=== PATIENT | female | born 1950 | race Caucasian/White ===

== ENCOUNTER 2016-07-28 16:04 | Observation (INO) | payer MEDICARE ==
[2016-07-28] VITALS (7 sets, daily range): BP systolic 126–150; BP diastolic 78–90; PULSE 80–96; RESP 16–20; O2SAT 95–97
[~2016-07-28] VITALS: Ht 175.3 cm; Wt 83.5 kg
--- NOTE | 2016-07-28 16:16 | ED.REPORT ---
HPI-General Illness Date of Service Jul 28, 2016 ED Provider: Abimael Rahman MD 66 year old female with a long history of atrial fibrillation and cardiac ablation presents to the ER via EMS with chest pressure and shortness of breath onset three days ago upon awakening. Symptoms are consistent with prior episodes of atrial fibrillation, though much longer than is typical for her. Her symptoms were exacerbated by minimal exertion yesterday when she went to do some work in the [place] her home. At that time she noticed increased HR and BP. Symptoms continued to persist through today, and upon returning home around 13:00 this afternoon she took twice her normal dose of Diltiazem and called her primary care provider who referred her to the ER. In the past she has experienced a lot of adverse side effects with a litany of cardiac medications. Nursing Notes Stated Complaint: CARDIAC ISSUE Nursing Notes Reviewed: Yes Allergies: Coded Allergies: Opioids - Morphine Analogues (Verified Adverse Reaction, Severe, itching, 07/28/16) all opiates General Time Seen by MD: 16:16 Chief Complaint Chest pain Hx Obtained From: Patient Arrived By: Ambulance Sudden in Onset?: Yes Onset Occurred: 3 days ago Symptom Duration: Since onset Location: : Chest Quality: Pressure Severity: Current: Moderate Severity: Maximum: Moderate Pertinent Negative: Pt denies other symptoms Similar Sx Previous: Yes Past Medical History Past Medical History Atrial fibrillation Smoking History Current Every Day Smoker Social History Alcohol Use: 3-5 per day Other Social History: Good social support, Ambulatory Status Independent Review of Systems Full Review of Systems Constitutional: Denies: Chills, Fever Respiratory: Reports: Shortness of breath Cardiovascular: Reports: Chest pain GI: Denies: Abdominal pain, Diarrhea, Nausea, Vomiting Musculoskeletal: Denies: Back pain, Neck pain, Thoracic pain Skin: Denies Diaphoresis Complete sys rev & neg: except as marked. Physical Exam Vital Signs Vital Signs Date Time Temp Pulse Resp B/P Pulse Ox O2 Delivery O2 Flow Rate FiO2 07/28/16 17:35 84 18 150/85 07/28/16 16:45 96 18 126/87 07/28/16 16:24 37.6 88 16 141/84 95 Room Air Initial VS: Reviewed Head / Eyes: Atraumatic, Normocephalic Neck: Supple, Non-tender, Full range of motion Abdomen / GI: Soft, Non-tender, No guarding, No rebound, No distention Extremities: Vascular intact, Neuro intact, No swelling, No tenderness Skin: Warm, Dry, No cyanosis Neurologic: Alert, Oriented, Nonfocal General/Constitutional: Awake, Alert, Well developed, Well nourished Respiratory / Chest: Breath sounds NL, No respiratory distress, No rales, No rhonchi, No wheezing Cardiovascular: Heart rate NL, No gallop, No murmurs, No rubs Heart Rate / Rhythm: Positive: Irregular rhythm Interpretation & Diagnostics Lab Results Interpretation Result Diagram: 07/28/16 1628 07/28/16 1628 Test 07/28/16 16:28 07/28/16 18:00 White Blood Count 7.3th/mm3 (3.8-10.1) Red Blood Count 4.49mil/mm3 (3.90-5.20) Hemoglobin 14.2g/dL (12.0-15.6) Hematocrit 42.0% (35.0-46.0) Mean Corpuscular Volume 93.5fL (81-100) Mean Corpuscular Hemoglobin 31.6pg (27.0-35.0) Mean Corpuscular Hemoglobin Concent 33.8% (32.0-37.0) Red Cell Distribution Width 12.1% (12.3-15.4) Platelet Count 243bil/L (150-400) Neutrophils (%) (Auto) 54.1% (40-74) Lymphocytes (%) (Auto) 30.4% (14-46) Monocytes (%) (Auto) 11.7% (4-12) Eosinophils (%) (Auto) 3.0% (0-5) Basophils (%) (Auto) 0.5% (0-3) Sodium Level 139mEq/L (134-144) Potassium Level 4.2mEq/L (3.5-5.2) Chloride Level 100mEq/L (97-108) Carbon Dioxide Level 23mmol/L (18-29) Blood Urea Nitrogen 17mg/dL (8-27) Creatinine 0.88mg/dL (0.57-1.00) Estimat Glomerular Filtration Rate 92mL/min (>59) Glucose Level 102mg/dL (60-99) Calcium Level 9.4mg/dL (8.5-10.1) Magnesium Level 2.0mg/dL (1.6-2.6) Total Bilirubin 0.3mg/dL (0.0-1.2) Aspartate Amino Transf (AST/SGOT) 32U/L (0-50) Alanine Aminotransferase (ALT/SGPT) 20U/L (0-32) Alkaline Phosphatase 81U/L (25-165) Troponin T < 0.010ug/L (0.0-0.011) Total Protein 7.7g/dL (6.4-8.4) Albumin 4.3g/dL (3.4-5.0) Hold [place] Top Tube Received (Received) ECG Interpretation ECG Interpretation: Atrial flutter 2:1 conduction pattern Left axis deviation Inferior Q waves No ST segment elevation No T wave abnormalities No prior ECG available for comparison Time: 17:25 Interpreted by: ED physician X-Ray Chest Interpretation Chest Xray Interpretation: IMPRESSION: No acute cardiopulmonary abnormality Dictated by: Gregorio Cook M.D. on 07/28/2016 at 17:00 Approved by: Gregorio Cook M.D. on 07/28/2016 at 17:00 View: Portable, 1 view Interpretation / Wet Read by: Interpret - Radiologist Re-Eval/Medical Decision Med Decision/Clinical Course 66 year old female with a long history of atrial fibrillation and cardiac ablation presents to the ER via EMS with chest pressure and shortness of breath onset three days ago upon awakening. Symptoms are consistent with prior episodes of atrial fibrillation and rapid ventricular response. Prior to arrival the patient is been started on diltiazem bolus and infusion by flight nurse. Laboratory studies were notable as below: CBC unremarkable Chemistry unremarkable Troponin negative EKG was obtained and interpreted by myself as documented above. CXR: Obtained, reviewed and interpreted by myself shows no evidence of acute infiltrates, effusions or pneumothorax. Cardiac and mediastinal silhouette normal. No bony or soft tissue abnormalities. Pt and was maintained on diltiazem infusion with good rate control. He remained in atrial fibrillation/flutter. Patient had no ongoing symptoms of ischemia such as altered mental status or lightheadedness or chest pain. Initial screening troponin was negative and EKG was not acutely ischemic in appearance. Patient was discussed with admitting hospitalist and accepted for further management. Patient has a history of drinking 1 bottle of wine a day and was therefore placed on CIWA protocol. Source of Hx: Old records Time of Eval: 17:42 Re-Evaluation/Progress Note: Discussed plan to transfer. Patient is amenable to the plan. Discharge & Departure Primary Impression: Atrial flutter Atrial flutter type: unspecified Qualified Code: I48.92 - Unspecified atrial flutter Additional Impressions: Atrial fibrillation with rapid ventricular response Headache Headache type: unspecified Headache chronicity pattern: unspecified pattern Intractability: not intractable Qualified Code: R51 - Headache Lightheadedness Chest discomfort Alcoholism Discharge Condition All VS Reviewed: Yes Condition: Stable Referrals: NOPCP (PCP) Crit Care Except Billable Proc Time Spent: 105-134 minutes Services Performed: Patient management by me, Time spent at bedside, Reviewing test results, Reviewing imaging, Discussing patient care, Documentation in record, Time with fam/surrogate Scribe Attestation Portions of this note were transcribed by Vivek Ornelas. I, Dr. Rahman, personally performed the history, physical exam and medical decision-making; I reviewed and confirmed the accuracy of the information in the transcribed note. Signed by: Emely Pearl, 07/28/2016 and 18:11 Abimael Rahman MD Jul 28, 2016 16:16 VIVEK ORNELAS Jul 28, 2016 17:26
[2016-07-28 16:48] LABS: BASOPHILS % (AUTO) 0.5 % (0-3); MONOCYTES % (AUTO) 11.7 % (4-12); Mean Corpuscular Hemoglobin 31.6 pg (27.0-35.0); Mean Corpuscular Volume 93.5 fL (81-100); NEUTROPHILS % (AUTO) 54.1 % (40-74); Platelet Count 243 bil/L (150-400)
--- NOTE | 2016-07-28 17:02 | DRSVH ---
PROCEDURE: X-RAY CHEST ONE VIEW, PORTABLE ([id number]) INDICATIONS: shortness of breath TECHNIQUE: One view of the chest was acquired. COMPARISON: None. FINDINGS: Surgical changes and devices: 11/13/2014 Lungs and pleura: No pleural effusions or pneumothorax. Lungs are clear. Mediastinum: Mediastinal contours appear normal. Heart size is normal. Bones and chest wall: No suspicious bony lesions. Overlying soft tissues appear unremarkable. IMPRESSION: No acute cardiopulmonary abnormality Dictated by: Gregorio Cook M.D. on 07/28/2016 at 17:00 Approved by: Gregorio Cook M.D. on 07/28/2016 at 17:00
[2016-07-28 17:12] LABS: TROPONIN T < 0.010 ug/L (0.0-0.011)
[2016-07-28] MEDS ORDERED: Ondansetron 2 mg/mL 2 mL Inj IVPUSH PRN (18:50)
[2016-07-28] MEDS ORDERED: Alum-Mag Hydrox-Simeth 30 mL Suspension PO PRN (18:50)
[2016-07-28 21:32] LABS: APPEARANCE,URINE HAZY (CLEAR,HAZY); COLOR,URINE YELLOW (YELLOW); PH,URINE 6.5 (5.0-8.0)
[2016-07-28 21:33] LABS: OCCULT BLOOD,URINE NEGATIVE (NEGATIVE); UROBILINOGEN,URINE NORMAL (NORMAL)
[2016-07-28] MEDS ORDERED: Polyethylene Glycol (PEG) 17 Gm Powder PO PRN (22:35)
--- NOTE | 2016-07-28 22:52 | PCM.HPMED ---
Subjective Date of Service Jul 28, 2016 Primary Provider: Admitting Physician: Darren Merino MD Primary Care Physician: Nopsuzy Attending Physician: Darren Merino MD Chief Complaint: chest palpitations History of Present Illness: Patient is a 66 year old female with a long standing history of atrial fibrillation. Patient occasionally goes into atrial fibrillation with rvr. Due to her location of her house she is unable to come to the hospital, so she often sees if it abates or proceeds to take flecanide if the symptoms continue. Patient has been noticing that she has been having increasingly frequent bouts of atrial fibrillation with rvr. However these go away spontaneously by themselves. Patient in the past year had to take flecanide twice when her symptoms did not improve. Patient after taking flecanide usually is asymptomatic. Patient in this instance was seen to again go into atrial fibrillation with presumed rvr. Patient continued on for two days with it however the symptoms did not subside. Patient was hesitant to take the flecanide given the overly sedative affects that it causes in her. Patient then called her doctor who advised her to call ems. Patient was seen by ems, and due to the patients location they called a doctor, and started a diltiazem drip. Patient on arriving to the ER was seen to be rate controlled. Patient has no other complaints except for fatigue. Patient has had no episodes of chest pain or shortness of breath stemming from this. Patient is currently asymptomatic and will be monitored. Review of Systems: Full Review of Systems Constitutional: Denies: Chills, Fever Respiratory: Reports: Shortness of breath Cardiovascular: Reports: Chest pain GI: Denies: Abdominal pain, Diarrhea, Nausea, Vomiting Musculoskeletal: Denies: Back pain, Neck pain, Thoracic pain Skin: Denies Diaphoresis Complete sys rev & neg: except as marked. Allergies Coded Allergies: Opioids - Morphine Analogues (Verified Adverse Reaction, Severe, itching, 07/28/16) all opiates Home Medications diltiazem aspirin PMH atrial fibrillation Surgical History none Family History non-contributory Social History Hx Alcohol Use: Yes (daily, 1 bottle of wine) Hx Substance Use: No Smoking Status: Current Every Day Smoker Exam Vital Signs Vital Sign - Last Date Time Temp Pulse Resp B/P Pulse Ox O2 Delivery O2 Flow Rate FiO2 07/28/16 21:24 82 07/28/16 21:16 36.4 20 141/90 96 Room Air Exam General/Constitutional: Awake, Alert, Well developed, Well nourished Head / Eyes: Atraumatic, Normocephalic Neck: Supple, Non-tender, Full range of motion Respiratory / Chest: Breath sounds NL, No respiratory distress, No rales, No rhonchi, No wheezing Cardiovascular: Heart rate NL, No gallop, No murmurs, No rubs Heart Rate / Rhythm: Positive: Irregular rhythm Abdomen / GI: Soft, Non-tender, No guarding, No rebound, No distention Extremities: Vascular intact, Neuro intact, No swelling, No tenderness Skin: Warm, Dry, No cyanosis Neurologic: Alert, Oriented, Nonfocal Lab and Diagnostics Result Diagram: 07/28/16 1628 07/28/16 1628 X-Rays, CTs and MRIs X-Ray Chest Interpretation Chest Xray Interpretation: IMPRESSION: No acute cardiopulmonary abnormality 12-lead ECG ECG Interpretation: Atrial flutter @ 86 bpm 2:1 conduction pattern Left axis deviation Inferior Q waves No ST segment elevation No T wave abnormalities No prior ECG available for comparison Assessment & Plan Patient is a 66 year old female with a pmh of atrial fibrillation on no anticoagulation was found to be in afib with rvr at home, transported to the hospital on diltiazem drip Atrial fibrillation with rvr - resolved - currently patient is rate controlled and off of diltiazem drip - will start po diltiazem - will c/w aspirin - will admit to telemetry - pt wishes to be on anticoagulation given better monitoring capabilities and insurance coverage - cardiology consult in the am if warranted - will order echo given new onset exercise intolerance Alcohol - Pt claims to drink a bottle of wine a night - Pt claims to have drank every night in the past 2 weeks - pt claims to have never had dts before - will monitor for withdrawal symptoms Tobacco abuse - pt smokes everyday, half a pack - advised to quit - pt will make attempts DVT ppx via lovenox GI ppx not warranted Darren Merino MD Jul 28, 2016 22:52
[2016-07-28] MEDS ORDERED: Thiamine Inj 100 MG, Folic Acid Inj 1 MG, Magnesium Sulfate 50% Inj 2 GM, Multivitamins... IV ONE ×5 (22:55)
[2016-07-28] MEDS ORDERED: DILT30TA PO (23:11)
--- NOTE | 2016-07-29 00:37 | NUR ---
Admit note: Pt admitted from ER, able to ambulate to bed; steady on feet. Denies chest pain, shortness of breath. Tele a flutter 70s. CIWA score zero. States drinking one bottle of wine daily, denies ever having DT's. Alert and oriented x3. Oriented to the room and call light.
--- NOTE | 2016-07-29 00:41 | NUR ---
Med rec: Pt is from [facility]. [place] [facility] [place] Only scheduled medication is Diltiazem 30 mg PO daily. Pt did state that she take Flecanide as needed for bouts of a fib; unknown dose, not scheduled.
[2016-07-29 05:56] VITALS: BP 118/68; PULSE 60; RESP 16; O2SAT 98
[2016-07-29 06:13] LABS: BASOPHILS % (AUTO) 0.7 % (0-3); EOSINOPHILS % (AUTO) 8.9 % (0-5); MONOCYTES % (AUTO) 12.7 % (4-12); Mean Corpuscular Hemoglobin 32.1 pg (27.0-35.0); Mean Corpuscular Volume 93.7 fL (81-100); NEUTROPHILS % (AUTO) 42.4 % (40-74); Platelet Count 225 bil/L (150-400)
[2016-07-29 06:29] LABS: Magnesium 2.2 mg/dL (1.6-2.6)
[2016-07-29 09:54] VITALS: BP 144/80; PULSE 71; RESP 18; O2SAT 98
[2016-07-29 12:51] VITALS: BP 171/92; PULSE 69; RESP 17; O2SAT 99
--- NOTE | 2016-07-29 15:04 | DRSVH ---
[facility] [address] [place] [address] Echocardiogram Report Name: TRACEY OTT JStudy Date: 07/29/2016 Height: 69 in Hospital Exam Location: [facility] Weight: 184 lb Gender: Female BSA: 2.0 m2 : 1950 Age: 66 yrs BP: 118/68 mmHg Reason For Study: Atrial fibrillation History: smoker Ordering Physician: Performed By: Chely Elise [facility] Interpretation Summary The left ventricle is normal in size, wall thickness, and systolic function without any focal wall motion abnormalities. The ejection fraction is estimated to be 55-60%. The right ventricle grossly appears normal in size with probable normal systolic function. The right ventricular systolic pressure is estimated at 29 mmHg assuming a right atrial pressure of 3 mm Hg. The left atrium is mildly dilated. The right atrium is mildly dilated. There is no significant valvular heart disease. The aortic root is normal size. Procedure: A two-dimensional transthoracic echocardiogram with color flow and Doppler was performed. The study quality was technically adequate. There is no prior echocardiogram noted for this patient. The patient was in normal sinus rhythm during the exam. Left Ventricle: The left ventricle is normal in size, wall thickness, and systolic function without any focal wall motion abnormalities. The ejection fraction is estimated to be 55-60%. Septal motion is consistent with conduction abnormality. Assessment of diastolic parameters indicates normal left ventricular diastolic function and normal filling pressures. Right Ventricle: The right ventricle grossly appears normal in size with probable normal systolic function. Atria: The left atrium is mildly dilated. The right atrium is mildly dilated. The interatrial septum is intact with no evidence for an atrial septal defect. There is no Doppler evidence for an interatrial shunt. Mitral Valve: The mitral valve leaflets appear borderline thickened, but open well. There is trace mitral regurgitation. Aortic Valve: The aortic valve is not well visualized. The aortic valve opens well. No aortic regurgitation is present. Tricuspid Valve: The tricuspid valve leaflets are thin and pliable. There is a trace or physiologic amount of tricuspid regurgitation. The right ventricular systolic pressure is estimated at 29 mmHg assuming a right atrial pressure of 3 mm Hg. Pulmonic Valve: The pulmonic valve is not well visualized. There is no significant valvular heart disease. Great Vessels: The aortic root is normal size. The ascending aorta is normal in size. The aortic arch could not be visualized. The IVC is of normal diameter and collapses greater than 50% with a sniff. This suggests a low right atrial pressure of 3 mm Hg. Pericardium/ Pleura There is no pericardial effusion. MMode/2D Measurements & Calculations LVIDd: 5.2 cm LA dimension: 4.0 cm RA long axis LVOT diam LVIDs: 3.3 cm FS: 36.6 % LA A4 area: 28.7 cm RA area Ao root diam EPSS: 0.60 cm LA length (vol): 6.6 cm IVSd: 0.84 cm IVC diam: 1.3 cm : 22.0 cm asc Aorta LVPWd: 0.84 cm RA vol: 67.4 mlDiam: 3.1 cm RA : 33.8 mm2 LV fish. diameter/BSA LV sys. diameter/BSA RVD1 (basal) (cm/m^2): 2.6 (cm/m^2): 1.7 Doppler Measurements & Calculations Ao V2 max MV E max dax MV E/A: 1.0 TR max dax : 162.4 cm/sec : 73.5 cm/sec Med Peak E' Dax : 253.8 cm/sec Ao max PG MV A max dax TR max PG : 10.6 mmHg : 73.5 cm/sec E/E' med: 11.1 : 25.8 mmHg Ao mean PG MV P1/2t: 56.7 msec Pulm A Revs Dur PA V2 max : 79.7 cm/sec LVOT Max Dax MV A dur: 0.10 sec PA mean PG : 92.6 cm/sec VANE(I,D): 2.5 cm PA Accel Time sev ratio : 0.16 sec MV dec time MV P1/2t max dax Ao V2 mean LV V1 max PG : 0.19 sec : 111.4 cm/sec Ao V2 VTI: 31.5 cm LV V1 VTI MVA(P1/2t): 3.9 cm2 : 19.0 cm VANE(V,D): 2.4 cm2 PA V2 mean VANE indexed to BSA Pulm A Revs Dur - MV A : 64.0 cm/sec (cm^2/m^2): 1.2 Dur: 0.01 msec Reading Physician:ARJUN
--- NOTE | 2016-07-29 15:50 | NUR ---
Social Work: Initial Assessment / Chemical Dependency Assessment attempted Data: Pt is a 66 y/o female admitted for A-fib with RVR. Pt's PCP is not listed, pt's insurance is listed as [employer]. Readmit score not listed. Pt lives in a single story home on [address], pt is , lives in [place]. Pt drives, uses no DME, has no history of HH or SNF, no LTC or VA benefits, and is not a caregiver for anyone. Pt states that her is her DPOA, but that they do not have the paperwork to give to hospital. [employer] requested a copy when available. Pt states that she has been up and independent in the room. Pt states that she believes that she has Medicare with [facility] for insurance and gave [employer] their insurance cards to copy. [employer] copied cards, in P[employer] folder currently. PACKER OPERATOR [employer] called UR specialist and requested she look into pt's insurance information, no answer, [employer] left a message. No d/c planning needs identified at this time. P[employer] will continue to follow if needs arise. [employer] asked pt about alcohol use, pt reports drinking a bottle of wine each night and that it isn't a problem for them. [employer] asked if there are any negative results of this drinking and if pt sees this as a problem, they state it is not a problem. [employer] offered drinking resources, pt declined. Pt states they don't want to talk about drinking any further with [employer]. Assessment: Pt who is independent at baseline. Plan: Pt will d/c home via POV with spouse when medically stable. P[employer] will provide priority boarding pass for ferrVidient ride to [facility]. [employer] will look into medication coverage with pt's insurance information once verified. [employer] will continue to follow if needs arise. SONIA Burgos Addendum: 07/29/16 at 1606 by ROSI BIRMINGHAM SS Amended: Links added.
[2016-07-29 16:43] VITALS: BP 135/75; PULSE 71; RESP 18; O2SAT 95
[2016-07-29 16:51] VITALS: PULSE 70
--- NOTE | 2016-07-29 17:19 | PCM.PNMED ---
Subjective Date of Service Jul 29, [address] that she goes in and out of atrial fibrillation often and that she felt her heart racing very fast for almost 2 days straight before calling for EMS. She states that she had flecanide which she takes PRN for palpitations or lightheadedness. She took 2 doses of flecanide at home and waited for almost 12 hours, but it did not resolve and that is why she is here. She converted to NSR this morning with a heart rate in the 70s for much of the day. Exam Vital Signs Vital Sign - Last Date Time Temp Pulse Resp B/P Pulse Ox O2 Delivery O2 Flow Rate FiO2 07/29/16 12:51 37.0 69 17 171/92 99 Room Air Intake and Output 07/28/16 07/28/16 07/29/16 Cumulative From/Thru 15:00 23:00 07:00 07/28/16 16:24 - 07/29/16 05:57 Intake Total 837 ml 837 ml Output Total 400 ml 400 ml 800 ml Balance -400 ml 437 ml 37 ml Intake Oral 500 ml 500 ml IV Total 337 ml 337 ml Output Urine Total 400 ml 400 ml 800 ml # Voids 1 1 Exam General: Sitting up in bed, comfortable appearing upon my entering the room. Appears older than her stated age. No acute distress. Awake, alert and oriented. HEENT: Sclera anicteric. Mucus membranes moist Cardiac: RRR without murmur, rub, or gallop. No JVD Lungs: Moderate inspiratory effort without wheezes, rales, or rhonchi.No accessory muscle use. Abdomen: Normoactive bowel tones. Soft, nondistended and nontender. Extremities: No clubbing, cyanosis, or edema. Normal muscle tone and bulk. There are several bruises <2cm in diameter present on all 4 extremities, ranging from yellow to dark purple. Neuro: Normal speech. Cranial nerves grossly normal. Moves all 4 extremities with ease. Lab and Diagnostics Result Diagram: 07/29/1652307/29/16523 X-Rays, CTs and MRIs X-Ray Chest Interpretation Chest Xray Interpretation: IMPRESSION: No acute cardiopulmonary abnormality 12-lead ECG ECG Interpretation: Atrial flutter @ 86 bpm 2:1 conduction pattern Left axis deviation Inferior Q waves No ST segment elevation No T wave abnormalities No prior ECG available for comparison Assessment & Plan Ave is a 66 year old female with a long history of intermittent atrial fibrillation who was found to be in atrial fibrillation with rapid ventricular rate at home, transported here on a diltiazem drip. Atrial fibrillation with rapid ventricular rate, resolved - Currently in normal sinus rhythm - Now on oral diltiazem, may benefit from increased dosing from her usual home dosing - Continue aspirin - Continue telemetry - She has a hx of gastrointestinal hemorrhage with supratherapeutic warfarin in the past. - [id number] score of 2 indicating moderate-high risk of stoke, this was discussed with the patient who verbally expressed an interest in a new anticoagulant option. - HASBLED score of 3 indicates a high risk of major bleeding with anticoagulation this was also discussed with the patient, she is not entirely sure if she wants to start anticoagulation - Echocardiogram Alcohol use, chronic and present on admission - Drinks 1 bottle of wine per day - Denies any hx of withdrawal -Monitor for potential withdrawal symptoms, has been okay thus far Tobacco abuse - Nicotine patch daily - Encourage tobacco cessation Disposition: Anticipate discharge tomorrow if she remains in NSR. VTE Prophylaxis: Sub-Q Enoxaparin Resuscitation Status: CPR: Attempt Resuscitation Time spent 30 minutes Attending Statement I have seen and evaluated patient at bedside, in addition to directly supervising care provided by resident physician. I agree with above documentation. Salome Aldridge DO Jul 29, 2016 16:35 Tay Bray DO Jul 30, 2016 07:47
--- NOTE | 2016-07-29 19:18 | NUR ---
Aflutter Patient in Aflutter this AM. Spontaneously converted to sinus rhythm at 0745. Maintained sinus rhythm throughout shift.
[2016-07-29 21:11] VITALS: BP 152/87; PULSE 78; RESP 16; O2SAT 99
[2016-07-30 00:21] VITALS: BP 163/92; PULSE 75; RESP 18; O2SAT 97
--- NOTE | 2016-07-30 04:25 | NUR ---
CIWA/sleep Patients CIWA scores low 1-3 this shift. no s/s of withdrawal at this time. Patient eager to get home. vitals stable. Patient reports unable to sleep refused sleeping meds states "allergy to hospital" patient given snacks per request. Will continue monitor.
[2016-07-30 05:30] VITALS: BP 141/67; PULSE 67; RESP 16; O2SAT 96
[2016-07-30 05:42] LABS: BASOPHILS % (AUTO) 0.7 % (0-3); EOSINOPHILS % (AUTO) 8.2 % (0-5); MONOCYTES % (AUTO) 12.3 % (4-12); Mean Corpuscular Hemoglobin 31.3 pg (27.0-35.0); Mean Corpuscular Volume 93.8 fL (81-100); NEUTROPHILS % (AUTO) 43.1 % (40-74); Platelet Count 216 bil/L (150-400)
[2016-07-30 07:19] VITALS: PULSE 75
--- NOTE | 2016-07-30 08:15 | PCM.DIMED ---
Salome Aldridge DO 07/30/16 0743: Discharge Instructions Date of Service Jul 30, 2016 Dates of Hospitalization Jul 28, 2016 at 20:18 Discharge Diagnosis Discharge Diagnosis Atrial fibrillation with rapid ventricular rate, resolved Alcohol use, chronic and present on admission - No withdrawal symptoms observed Tobacco use Medication Instructions Take aspirin 81mg by mouth once daily STOP taking the diltiazem 30mg dosing, instead: Take diltiazem 60mg by mouth once daily. * Please discuss the increased dosing of diltiazem with your PCP Test Results The echocardiogram (ultrasound of your heart) shows that 2 of the chambers of your heart are mildly enlarged. Diet Heart Healthy Activity No restrictions Call your provider Fever or Chills, Shortness of breath, Bleeding, Chest pain, Vomitting, Excessive diarrhea, Weakness (unilateral) Patient Instructions Follow-up plan Please call your primary care office to schedule an appointment to follow up regarding your atrial fibrillation and this hospitalization. Also, please contact your harvesting contractor's office to schedule an appointment with Dr Rodarte. We will send records including the echocardiogram report to your harvesting contractor and your primary care provider [facility]-up Provider[facility] Follow-up with PCP in: 1 week Provider: Delmar Rodarte MD Follow-up in: Other (1-3 weeks) Tay Bray DO 07/31/16 0750: Discharge Instructions Attending's Statement Read and agree Salome Aldridge DO Jul 30, 2016 07:43 Tay Bray DO Jul 31, 2016 07:50
[2016-07-30] MEDS ORDERED: DILT60CA PO (08:17)
[2016-07-30 09:06] VITALS: BP 150/92; PULSE 82; RESP 18; O2SAT 97
--- NOTE | 2016-07-30 09:38 | NUR ---
Discharge Pt d/c home with at 0920. IV d/c prior to leaving. Tele off, and tech notified. pt denied pain. All personal belongings taken by pt. Discharge info discussed with family, education provided myra in regards to smoking. Pt appeared compliant and very willing to stop.
--- NOTE | 2016-07-30 10:08 | NUR ---
Social Work: Discharge Data: Pt is on day 2 of hospitalization. Pt has discharged home. MUSIC RESEARCHER asked MD if pt requires anything with checking the cost of medications, MD reports he spoke with pt about this and they do not require this. MUSIC RESEARCHER ad priority boarding pass available for pt, pt left before MUSIC RESEARCHER got to the floor this morning. No further d/c planning needs at this time. Assessment: Pt who is independent at baseline. Plan: Pt discharged home via POV today with spouse. No further d/c planning needs at this time. SONIA Burgos
--- NOTE | 2016-07-30 10:57 | PCM.DC.MED ---
Discharge Summary Date of Service Jul 30, 2016 Dates of Hospitalization Date of Hospital Admission Jul 28, 2016 at 20:18 Date of Discharge: Jul 30, 2016 Providers: Admitting Physician: Darren Merino MD Primary Care Physician: Loretta Attending Physician: Darren Merino MD Diagnosis at Time of Discharge Diagnosis at Time of Discharge Atrial fibrillation with rapid ventricular rate, resolved Alcohol use, chronic and present on admission - No withdrawal symptoms observed Tobacco use Procedures XRay, CTs & MRIs X-Ray Chest Interpretation Chest Xray Interpretation: IMPRESSION: No acute cardiopulmonary abnormality ECG 12 Lead ECG Interpretation in the ER: Atrial flutter @ 86 bpm 2:1 conduction pattern Left axis deviation Inferior Q waves No ST segment elevation No T wave abnormalities No prior ECG available for comparison Cardiac Echo Impression Transthoracic Echocardiogram on 07/29/16: Interpretation Summary The left ventricle is normal in size, wall thickness, and systolic function without any focal wall motion abnormalities. The ejection fraction is estimated to be 55-60%. The right ventricle grossly appears normal in size with probable normal systolic function. The right ventricular systolic pressure is estimated at 29 mmHg assuming a right atrial pressure of 3 mm Hg. The left atrium is mildly dilated. The right atrium is mildly dilated. There is no significant valvular heart disease. The aortic root is normal size. Procedure: A two-dimensional transthoracic echocardiogram with color flow and Doppler was performed. The study quality was technically adequate. There is no prior echocardiogram noted for this patient. The patient was in normal sinus rhythm during the exam. Left Ventricle: The left ventricle is normal in size, wall thickness, and systolic function without any focal wall motion abnormalities. The ejection fraction is estimated to be 55-60%. Septal motion is consistent with conduction abnormality. Assessment of diastolic parameters indicates normal left ventricular diastolic function and normal filling pressures. Right Ventricle: The right ventricle grossly appears normal in size with probable normal systolic function. Atria: The left atrium is mildly dilated. The right atrium is mildly dilated. The interatrial septum is intact with no evidence for an atrial septal defect. There is no Doppler evidence for an interatrial shunt. Mitral Valve: The mitral valve leaflets appear borderline thickened, but open well. There is trace mitral regurgitation. Aortic Valve: The aortic valve is not well visualized. The aortic valve opens well. No aortic regurgitation is present. Tricuspid Valve: The tricuspid valve leaflets are thin and pliable. There is a trace or physiologic amount of tricuspid regurgitation. The right ventricular systolic pressure is estimated at 29 mmHg assuming a right atrial pressure of 3 mm Hg. Pulmonic Valve: The pulmonic valve is not well visualized. There is no significant valvular heart disease. Great Vessels: The aortic root is normal size. The ascending aorta is normal in size. The aortic arch could not be visualized. The IVC is of normal diameter and collapses greater than 50% with a sniff. This suggests a low right atrial pressure of 3 mm Hg. Pericardium/ Pleura There is no pericardial effusion. Brief History Per H&P by Dr Merino: Patient is a 66 year old female with a long standing history of atrial fibrillation. Patient occasionally goes into atrial fibrillation with rvr. Due to her location of her house she is unable to come to the hospital, so she often sees if it abates or proceeds to take flecanide if the symptoms continue. Patient has been noticing that she has been having increasingly frequent bouts of atrial fibrillation with rvr. However these go away spontaneously by themselves. Patient in the past year had to take flecanide twice when her symptoms did not improve. Patient after taking flecanide usually is asymptomatic. Patient in this instance was seen to again go into atrial fibrillation with presumed rvr. Patient continued on for two days with it however the symptoms did not subside. Patient was hesitant to take the flecanide given the overly sedative affects that it causes in her. Patient then called her doctor who advised her to call ems. Patient was seen by ems, and due to the patients location they called a doctor, and started a diltiazem drip. Patient on arriving to the ER was seen to be rate controlled. Patient has no other complaints except for fatigue. Patient has had no episodes of chest pain or shortness of breath stemming from this. Patient is currently asymptomatic and will be monitored. Hospital Course Ave is a 66 year old female with a long history of intermittent atrial fibrillation who was found to be in atrial fibrillation with rapid ventricular rate at home, transported here on a diltiazem drip. The following were addressed during this hospitalization: Symptomatic atrial fibrillation with rapid ventricular rate, resolved - Longstanding paroxysmal atrial fibrillation with failed ablation - Received a diltiazem drip en route to [facility], transitioned to oral diltiazem once her ventricular rate was controlled - In normal sinus rhythm for 24hours prior to discharge - Increased her oral diltiazem from 30mg daily to 60mg daily - Continued aspirin - Continued telemetry throughout her hospitalization - [id number] score of 2 indicates a moderate-high risk of stoke, this was discussed with the patient - HASBLED score of 3 indicates a high risk of major bleeding with anticoagulation this was also discussed with the patient who lives on [facility]. She verbally expressed a desire to refrain from anticoagulant use given the risk for bleeding and that she does not live close to an acute care hospital. - Echocardiogram with biatrial enlargement, this was discussed with the patient. See report above. - Troponin < 0.010 Alcohol use, chronic and present on admission - Drinks 1 bottle of wine per day - Denied any hx of withdrawal - Monitored for potential withdrawal symptoms, none observed Tobacco abuse - Nicotine patch daily - Encouraged tobacco cessation with Ave who reported a plan to cherry picker operator a box of nicotine patches on her way home as she is ready to quit smoking. Exam Vital Signs (Last) Date Time Temp Pulse Resp B/P Pulse Ox O2 Delivery O2 Flow Rate FiO2 07/30/16 09:06 36.7 82 18 150/92 97 Room Air Exam On the date of discharge: General: Sitting up in bed, comfortable appearing upon my entering the room. No acute distress. Awake, alert and oriented. HEENT: Sclera anicteric. Mucus membranes moist Cardiac: RRR without murmur, rub, or gallop. No JVD Lungs: Good inspiratory effort without wheezes, rales, or rhonchi.No accessory muscle use. Abdomen: Normoactive bowel tones. Soft, nondistended and nontender. Extremities: No clubbing, cyanosis, or edema. Normal muscle tone and bulk. There are several bruises <2cm in diameter present on all 4 extremities, ranging from yellow to dark purple. Neuro: Normal speech. Cranial nerves grossly normal. Moves all 4 extremities with ease. Psychiatric: Normal mood and affect. Test 07/28/16 16:28 07/28/16 18:00 07/29/16 05:24 07/30/16 05:21 Troponin T < 0.010ug/L (0.0-0.011) Hold [place] Top Tube Received (Received) Urine Color Yellow (YELLOW) Urine Appearance Hazy (CLEAR,HAZY) Urine pH 6.5 (5.0-8.0) Urine Specific [place] 1.020 (1.003-1.035) Urine Protein Negativemg/dL (NEG,TRACE) Urine Glucose (UA) Negativemg/dL (NEGATIVE) Urine Ketones Tracemg/dL (NEGATIVE) Urine Occult Blood Negative (NEGATIVE) Urine Nitrite Negative (NEGATIVE) Urine Bilirubin Negative (NEGATIVE) Urine Urobilinogen Normalmg/dL (NORMAL) Urine Leukocyte Esterase Negative (NEGATIVE) Urine RBC 0-2/hpf (0-2) Urine WBC 0-5/hpf (0-5) Urine Epithelial Cells None/hpf (NONE-MOD) Urine Crystals None seen (NONE SEEN) Urine Bacteria None/hpf (NONE-FEW) Urine Hyaline Casts None/lpf (NONE) Urine Granular Casts None seen (NONE SEEN) Urine Waxy Casts None seen (NONE SEEN) Urine Red Blood Cell Casts None seen (NONE SEEN) Urine White Blood Cell Casts None seen (NONE SEEN) Urine Mucus None seen (None Seen) Urine Trichomonas None seen (NONE SEEN) Urine Yeast None (NONE SEEN) Urinalysis Comment None Urine Culture Reflexed Not indicated Hold Urine Received (Received) Magnesium Level 2.2mg/dL (1.6-2.6) White Blood Count 5.5th/mm3 (3.8-10.1) Red Blood Count 4.16mil/mm3 (3.90-5.20) Hemoglobin 13.0g/dL (12.0-15.6) Hematocrit 39.0% (35.0-46.0) Mean Corpuscular Volume 93.8fL (81-100) Mean Corpuscular Hemoglobin 31.3pg (27.0-35.0) Mean Corpuscular Hemoglobin Concent 33.3% (32.0-37.0) Red Cell Distribution Width 11.7% (12.3-15.4) Platelet Count 216bil/L (150-400) Neutrophils (%) (Auto) 43.1% (40-74) Lymphocytes (%) (Auto) 35.5% (14-46) Monocytes (%) (Auto) 12.3% (4-12) Eosinophils (%) (Auto) 8.2% (0-5) Basophils (%) (Auto) 0.7% (0-3) Sodium Level 141mEq/L (134-144) Potassium Level 4.0mEq/L (3.5-5.2) Chloride Level 104mEq/L (97-108) Carbon Dioxide Level 27mmol/L (18-29) Blood Urea Nitrogen 11mg/dL (8-27) Creatinine 0.73mg/dL (0.57-1.00) Estimat Glomerular Filtration Rate 114mL/min (>59) Glucose Level 87mg/dL (60-99) Calcium Level 9.3mg/dL (8.5-10.1) Total Bilirubin 0.4mg/dL (0.0-1.2) Aspartate Amino Transf (AST/SGOT) 22U/L (0-50) Alanine Aminotransferase (ALT/SGPT) 15U/L (0-32) Alkaline Phosphatase 73U/L (25-165) Total Protein 6.5g/dL (6.4-8.4) Albumin 4.0g/dL (3.4-5.0) Discharge Medications Discharge Medications Diltiazem ER (Diltiazem ER) 60 Mg Cap.er.12h 60 MG PO DAILY Prescribed by: SALOME ALDRIDGE DO Additional med instructions Take aspirin 81mg by mouth once daily STOP taking the diltiazem 30mg dosing, instead: Take diltiazem 60mg by mouth once daily. * Please discuss the increased dosing of diltiazem with your PCP Followup Plan Disposition: Home to [facility] with her Follow-up plan Please call your primary care office to schedule an appointment to follow up regarding your atrial fibrillation and this hospitalization. Also, please contact your territory sales executive's office to schedule an appointment with Dr Rodarte. We will send records including the echocardiogram report to your territory sales executive and your primary care provider Discharge Diet: Heart Healthy Discharge Activity: No restrictions Follow-up Provider: [facility] Follow-up with PCP in: 1 week Provider: Delmar Rodarte MD Follow-up in: Other (1-3 weeks) Time spent 35 minutes Attending Statement I have seen and evaluated patient at bedside in addition to directly supervising care provided by resident physician. I agree with above documentation. Salome Aldridge DO Jul 30, 2016 10:57 Tay Bray DO Jul 31, 2016 07:53
--- NOTE | 2016-07-30 11:19 | NUR ---
Case Management: Late entry 11:21: Patient left prior to receiving Medicare Outpatient Observation Notice and handout "How Medicare Covers Self-Administered Drugs Given in Hospital Outpatient Settings" - these were sent to her by certified mail today with cover letter which including UR Department phone contacts if she had questions. Eric Robert RN
== END 2016-07-30 09:23 | disposition home or self-care (01) ==
LOC: SED 16:04 → EDBD 16:04 → EDSEX 16:04 → MPC 20:18
PROVIDERS: ADMIT Internal Medicine; ATTEND Internal Medicine
DX: I48.91 Unspecified atrial fibrillation (principal); Z72.89 Other problems related to lifestyle; F17.210 Nicotine dependence, cigarettes, uncomplicated
CPT/HCPCS: 36415; 71010; 80053; 81000; 83735; 84484; 85025; 93005; 99291; 99292; C8929; G0378; J1650; J3475; J7030